=== PATIENT | female | born 1990 | race Caucasian/White ===

== ENCOUNTER 2019-01-26 11:28 | Emergency (ER) | payer MEDICAID ==
[~2019-01-26] VITALS: Ht 172.7 cm; Wt 53.6 kg
[2019-01-26 11:32] VITALS: Ht 172.7 cm; Wt 53.6 kg
[2019-01-26 12:03] LABS: BASOPHILS 0.3 % (0-2); EOSINOPHILS 1.8 % (0-7); HEMATOCRIT 41.1 % (36.0-48.0); IMMATURE GRANULOCYTES 0.2 % (0-5); LYMPHOCYTES 19.2 % (15-50); MCH 30.2 pg (26.0-34.0); MCHC 34.1 g/dL (31.0-37.0); MCV 88.6 fL (80.0-100.0); MEAN PLATELET VOLUME 10.2 fL (7.4-10.4); MONOCYTES 6.3 % (2-11); NEUTROPHILS 72.2 % (40-80); PLATELET COUNT 238 10x3/uL (130-400); RBC 4.64 10x6/uL (4.00-5.40); RDW 12.9 % (11.5-14.5); WBC 9.1 10x3/uL (4.8-10.8)
[2019-01-26 12:05] LABS: ALBUMIN 4.9 g/dL (3.4-5.0); ALKALINE PHOSPHATASE 55 U/L (46-116); ALT (SGPT) 11 U/L (10-68); BILIRUBIN - TOTAL 0.54 mg/dL (0.2-1.3); CALC OSMOLALITY 276 mosm/kg (275-300); CALCIUM 10.3 mg/dL (8.5-10.1); CARBON DIOXIDE 25.8 mmol/L (21.0-32.0); CHLORIDE - SERUM 103 mmol/L (98-107); CREATININE - SERUM 0.9 mg/dL (0.6-1.3); GLUCOSE 80 mg/dL (74-106); POTASSIUM - SERUM 3.7 mmol/L (3.5-5.1); PROTEIN - SERUM 8.6 g/dL (6.4-8.2); SODIUM 138 mmol/L (136-145); UREA NITROGEN 19 mg/dL (7-18); eGFR NON AFRICAN AMERICAN 79 mL/min (90-120)
[2019-01-26 12:15] LABS: APPEARANCE HAZY (CLEAR); BACTERIA MODERATE /hpf (NONE SEEN); BILIRUBIN NEGATIVE (NEGATIVE); COLOR YELLOW (YELLOW); EPITHELIAL CELLS 0-5 /hpf (0-5); GLUCOSE NEGATIVE (NEGATIVE); KETONE NEGATIVE (NEGATIVE); MUCUS <1+ /lpf (NONE SEEN); NITRITE NEGATIVE (NEGATIVE); PROTEIN NEGATIVE (NEGATIVE); RED CELLS - URINE 0-5 /hpf (0-5); UROBILINOGEN NORMAL (NORMAL); WHITE CELLS - URINE RARE /hpf (0-5)
[2019-01-26 12:28] LABS: HCG - QUANTITATIVE (MATERNAL) 3287 mIU/mL
[2019-01-26 15:36] VITALS: BP 107/65
== END 2019-01-26 14:51 | disposition home or self-care (01) ==
LOC: D.ER 11:28
PROVIDERS: Family Medicine
DX: O26.851 Spotting complicating pregnancy, first trimester (principal); Z3A.01 Less than 8 weeks gestation of pregnancy

== ENCOUNTER 2019-01-27 16:30 | Emergency (ER) | payer MEDICAID ==
[~2019-01-27] VITALS: Ht 172.7 cm; Wt 53.6 kg
[2019-01-27 16:36] VITALS: Ht 172.7 cm; Wt 53.6 kg
[2019-01-27 17:14] LABS: BASOPHILS 0.2 % (0-2); EOSINOPHILS 1.1 % (0-7); HEMATOCRIT 37.9 % (36.0-48.0); HEMOGLOBIN 12.9 g/dL (12-16); IMMATURE GRANULOCYTES 0.2 % (0-5); LYMPHOCYTES 15.5 % (15-50); MCH 29.9 pg (26.0-34.0); MCV 87.9 fL (80.0-100.0); MONOCYTES 6.6 % (2-11); NEUTROPHILS 76.4 % (40-80); PLATELET COUNT 221 10x3/uL (130-400); RBC 4.31 10x6/uL (4.00-5.40); RDW 12.8 % (11.5-14.5)
[2019-01-27 17:19] LABS: WBC 11.5 10x3/uL (4.8-10.8)
[2019-01-27 18:40] VITALS: BP 100/61
== END 2019-01-27 18:40 | disposition home or self-care (01) ==
LOC: D.ER 16:30
PROVIDERS: Emergency Medicine
DX: O20.9 Hemorrhage in early pregnancy, unspecified (principal); Z3A.01 Less than 8 weeks gestation of pregnancy; O03.9 Complete or unspecified spontaneous abortion without complication

== ENCOUNTER 2019-02-02 20:09 | Emergency (ER) | payer MEDICAID ==
[~2019-02-02] VITALS: Ht 172.7 cm; Wt 53.6 kg
[2019-02-02 20:22] VITALS: Ht 172.7 cm; Wt 53.6 kg
[2019-02-02 20:49] LABS: BASOPHILS 0.3 % (0-2); HEMATOCRIT 37.2 % (36.0-48.0); HEMOGLOBIN 12.7 g/dL (12-16); IMMATURE GRANULOCYTES 0.3 % (0-5); MCH 29.8 pg (26.0-34.0); MCHC 34.1 g/dL (31.0-37.0); MCV 87.3 fL (80.0-100.0); MEAN PLATELET VOLUME 9.7 fL (7.4-10.4); MONOCYTES 7.1 % (2-11); NEUTROPHILS 57.3 % (40-80); PLATELET COUNT 229 10x3/uL (130-400); RBC 4.26 10x6/uL (4.00-5.40); RDW 12.7 % (11.5-14.5); WBC 7.6 10x3/uL (4.8-10.8)
[2019-02-02 21:05] LABS: ALBUMIN 4.6 g/dL (3.4-5.0); ALKALINE PHOSPHATASE 48 U/L (46-116); ALT (SGPT) 15 U/L (10-68); BILIRUBIN - TOTAL 0.42 mg/dL (0.2-1.3); CALC OSMOLALITY 282 mosm/kg (275-300); CALCIUM 9.1 mg/dL (8.5-10.1); CARBON DIOXIDE 23.5 mmol/L (21.0-32.0); CHLORIDE - SERUM 106 mmol/L (98-107); CREATININE - SERUM 0.7 mg/dL (0.6-1.3); GLUCOSE 97 mg/dL (74-106); POTASSIUM - SERUM 3.4 mmol/L (3.5-5.1); PROTEIN - SERUM 7.7 g/dL (6.4-8.2); SODIUM 142 mmol/L (136-145); UREA NITROGEN 13 mg/dL (7-18); eGFR NON AFRICAN AMERICAN > 90 mL/min (90-120)
[2019-02-02 21:11] LABS: HCG - QUANTITATIVE (MATERNAL) 97 mIU/mL
[2019-02-02 22:12] LABS: APPEARANCE CLEAR (CLEAR); COLOR YELLOW (YELLOW)
[2019-02-02 22:13] LABS: BILIRUBIN NEGATIVE (NEGATIVE); GLUCOSE NEGATIVE (NEGATIVE); KETONE NEGATIVE (NEGATIVE); NITRITE NEGATIVE (NEGATIVE); PROTEIN NEGATIVE (NEGATIVE); RED CELLS - URINE OCC /hpf (0-5); UROBILINOGEN NORMAL (NORMAL); WHITE CELLS - URINE OCC /hpf (0-5)
[2019-02-02 22:14] LABS: BACTERIA MODERATE /hpf (NONE SEEN); EPITHELIAL CELLS 0-5 /hpf (0-5)
[2019-02-02 23:02] VITALS: BP 107/70
== END 2019-02-02 23:05 | disposition home or self-care (01) ==
LOC: D.ER 20:09
PROVIDERS: Family Medicine
DX: O20.9 Hemorrhage in early pregnancy, unspecified (principal); Z3A.01 Less than 8 weeks gestation of pregnancy; R10.2 Pelvic and perineal pain

== ENCOUNTER 2019-08-10 00:24 | Outpatient (CLI) | payer OTHER ==
[2019-02-02 20:22] VITALS: BMI 17.9
[2019-08-10 01:21] LABS: APPEARANCE CLEAR (CLEAR); BILIRUBIN NEGATIVE (NEGATIVE); COLOR YELLOW (YELLOW); GLUCOSE 50 mg/dL (NEGATIVE); KETONE NEGATIVE (NEGATIVE); NITRITE NEGATIVE (NEGATIVE); PROTEIN NEGATIVE (NEGATIVE); SPECIFIC GRAVITY 1.015 (1.005-1.020); UROBILINOGEN NORMAL (NORMAL)
[2019-08-10 01:23] LABS: BACTERIA FEW /hpf (NEGATIVE); EPITHELIAL CELLS 0-5 /hpf (0-5); WHITE CELLS - URINE 0-5 /hpf (NEGATIVE)
[2019-08-10 02:12] LABS: BASOPHILS 0.1 % (0-2); EOSINOPHILS 0.7 % (0-7); HEMATOCRIT 30.5 % (36.0-48.0); HEMOGLOBIN 10.4 g/dL (12-16); IMMATURE GRANULOCYTES 0.5 % (0-5); LYMPHOCYTES 15.8 % (15-50); MCH 30.9 pg (26.0-34.0); MCHC 34.1 g/dL (31.0-37.0); MCV 90.5 fL (80.0-100.0); MEAN PLATELET VOLUME 9.4 fL (7.4-10.4); MONOCYTES 7.8 % (2-11); NEUTROPHILS 75.1 % (40-80); PLATELET COUNT 217 10x3/uL (130-400); RBC 3.37 10x6/uL (4.00-5.40); RDW 13.2 % (11.5-14.5); WBC 9.9 10x3/uL (4.8-10.8)
== END 2019-08-10 02:40 | disposition home or self-care (01) ==
LOC: D.LDO 00:24
PROVIDERS: ATTEND Student in an Organized Health Care Education/Training Program
DX: O26.892 Other specified pregnancy related conditions, second trimester (principal); Z3A.23 23 weeks gestation of pregnancy; R10.9 Unspecified abdominal pain

== ENCOUNTER 2019-08-11 17:47 | Outpatient (CLI) | payer OTHER ==
[2019-02-02 20:22] VITALS: BMI 17.9
[2019-08-11 21:58] LABS: BACTERIA MANY /hpf (NEGATIVE); BILIRUBIN NEGATIVE (NEGATIVE); EPITHELIAL CELLS 0-5 /hpf (0-5); GLUCOSE NEGATIVE (NEGATIVE); KETONE LARGE mg/dL (NEGATIVE); NITRITE NEGATIVE (NEGATIVE); RED CELLS - URINE 0-5 /hpf (0-5); SPECIFIC GRAVITY 1.025 (1.005-1.020); UROBILINOGEN NORMAL (NORMAL)
== END 2019-08-12 00:50 | disposition home or self-care (01) ==
LOC: D.LDO 17:47 → D.LD 23:06 → D.LDO 08-12 00:50
PROVIDERS: ATTEND Obstetrics & Gynecology
DX: O26.892 Other specified pregnancy related conditions, second trimester (principal); Z3A.23 23 weeks gestation of pregnancy; R10.9 Unspecified abdominal pain; N20.0 Calculus of kidney

== ENCOUNTER → 2019-08-18 17:52 | Outpatient (CLI) | payer OTHER ==
[2019-02-02 20:22] VITALS: BMI 17.9
[2019-08-18 18:46] LABS: BASOPHILS 0.1 % (0-2); EOSINOPHILS 1.2 % (0-7); HEMATOCRIT 30.7 % (36.0-48.0); HEMOGLOBIN 10.3 g/dL (12-16); IMMATURE GRANULOCYTES 0.4 % (0-5); LYMPHOCYTES 20.5 % (15-50); MCH 30.6 pg (26.0-34.0); MCHC 33.6 g/dL (31.0-37.0); MCV 91.1 fL (80.0-100.0); MEAN PLATELET VOLUME 9.5 fL (7.4-10.4); MONOCYTES 8.7 % (2-11); NEUTROPHILS 69.1 % (40-80); PLATELET COUNT 209 10x3/uL (130-400); RBC 3.37 10x6/uL (4.00-5.40); RDW 13.3 % (11.5-14.5); WBC 7.8 10x3/uL (4.8-10.8)
[2019-08-18 18:49] LABS: BILIRUBIN NEGATIVE (NEGATIVE); GLUCOSE NEGATIVE (NEGATIVE); KETONE NEGATIVE (NEGATIVE); NITRITE NEGATIVE (NEGATIVE); UROBILINOGEN NORMAL (NORMAL)
[2019-08-18 18:50] LABS: RED CELLS - URINE >50 /hpf (0-5); WHITE CELLS - URINE 0-5 /hpf (NEGATIVE)
[2019-08-18 18:51] LABS: BACTERIA FEW /hpf (NEGATIVE)
== END | disposition home or self-care (01) ==
LOC: D.LDO 17:52
PROVIDERS: ATTEND Obstetrics & Gynecology
DX: O36.8120 Decreased fetal movements, second trimester, not applicable or unspecified (principal); Z3A.24 24 weeks gestation of pregnancy; R31.9 Hematuria, unspecified

== ENCOUNTER 2019-10-07 14:04 | Outpatient (CLI) | payer OTHER ==
[2019-02-02 20:22] VITALS: BMI 17.9
[2019-10-07 14:24] LABS: BACTERIA MODERATE /hpf (NEGATIVE); BILIRUBIN NEGATIVE (NEGATIVE); EPITHELIAL CELLS OCC /hpf (0-5); GLUCOSE NEGATIVE (NEGATIVE); KETONE NEGATIVE (NEGATIVE); NITRITE NEGATIVE (NEGATIVE); RED CELLS - URINE >50 /hpf (0-5); UROBILINOGEN NORMAL (NORMAL); WHITE CELLS - URINE 0-5 /hpf (NEGATIVE)
[2019-10-07] MEDS ORDERED: PRENAVITE1 TAB PO (14:37)
[2019-10-07] MEDS ORDERED: TYLENOL W/CODEI1 TAB PO (14:38)
[2019-10-07] MEDS ORDERED: BENADRYL25 MG PO (14:38)
== END 2019-10-07 16:35 | disposition home or self-care (01) ==
LOC: D.LDO 14:04
PROVIDERS: ATTEND Student in an Organized Health Care Education/Training Program
DX: O26.899 Other specified pregnancy related conditions, unspecified trimester (principal); Z3A.00 Weeks of gestation of pregnancy not specified; M54.9 Dorsalgia, unspecified; R10.9 Unspecified abdominal pain

== ENCOUNTER 2019-10-12 16:01 | Outpatient (CLI) | payer OTHER ==
[2019-02-02 20:22] VITALS: BMI 17.9
[~2019-10-12 16:01] MED LIST: BENADRYL25 MG PO; PRENAVITE1 TAB PO; TYLENOL W/CODEI1 TAB PO
[2019-10-12] MEDS ORDERED: TYLENOL #4 W/CO1 TAB PO (16:05)
[2019-10-12 17:08] LABS: BASOPHILS 0.1 % (0-2); EOSINOPHILS 0.5 % (0-7); HEMATOCRIT 32.1 % (36.0-48.0); HEMOGLOBIN 10.3 g/dL (12-16); IMMATURE GRANULOCYTES 0.2 % (0-5); LYMPHOCYTES 15.5 % (15-50); MCH 29.9 pg (26.0-34.0); MCHC 32.1 g/dL (31.0-37.0); MCV 93.3 fL (80.0-100.0); MEAN PLATELET VOLUME 9.7 fL (7.4-10.4); MONOCYTES 7.7 % (2-11); PLATELET COUNT 204 10x3/uL (130-400); RBC 3.44 10x6/uL (4.00-5.40); RDW 13.3 % (11.5-14.5); WBC 9.7 10x3/uL (4.8-10.8)
[2019-10-12 17:15] LABS: BILIRUBIN NEGATIVE (NEGATIVE); CALC OSMOLALITY 270 mosm/kg (275-300); CALCIUM 8.8 mg/dL (8.5-10.1); CHLORIDE - SERUM 104 mmol/L (98-107); CREATININE - SERUM 0.6 mg/dL (0.6-1.3); GLUCOSE 78 mg/dL (74-106); GLUCOSE NEGATIVE (NEGATIVE); KETONE NEGATIVE (NEGATIVE); NITRITE POSITIVE (NEGATIVE); POTASSIUM - SERUM 3.7 mmol/L (3.5-5.1); SODIUM 137 mmol/L (136-145); UREA NITROGEN 6 mg/dL (7-18); UROBILINOGEN NORMAL (NORMAL); eGFR NON AFRICAN AMERICAN > 90 mL/min (90-120)
[2019-10-12 17:17] LABS: RED CELLS - URINE >50 /hpf (0-5)
[2019-10-12 17:18] LABS: BACTERIA MODERATE /hpf (NEGATIVE); EPITHELIAL CELLS NSEEN /hpf (0-5)
[2019-10-12 17:21] LABS: ALBUMIN 2.9 g/dL (3.4-5.0); ALKALINE PHOSPHATASE 65 U/L (30-120); BILIRUBIN - TOTAL 0.37 mg/dL (0.2-1.3); PROTEIN - SERUM 6.8 g/dL (6.4-8.2)
[2019-10-12 17:23] LABS: ALT (SGPT) 6 U/L (10-68)
[2019-10-13 07:10] VITALS: BP 98/61
--- NOTE | 2019-10-13 07:50 | NUR ---
DR URIOSTEGUI CALLS AND STATES TO DC MONITORING. MONITORS REMOVED AND PLAN OF CARE EXPLAINED TO PT. PT STATES UNDERSTANDING.
[2019-10-13] MEDS ORDERED: PERCOCET 5-3251 TAB PO (09:23)
== END 2019-10-13 10:35 | disposition home or self-care (01) ==
LOC: D.LDO 16:01 → D.LD 20:11 → D.LDO 10-13 10:35
PROVIDERS: ATTEND Obstetrics & Gynecology
DX: O36.8190 Decreased fetal movements, unspecified trimester, not applicable or unspecified (principal); Z3A.00 Weeks of gestation of pregnancy not specified; M54.9 Dorsalgia, unspecified; R10.32 Left lower quadrant pain

== ENCOUNTER 2019-10-20 17:58 | Outpatient (CLI) | payer OTHER ==
[~2019-10-20 17:58] MED LIST changes: +PERCOCET 5-3251 TAB PO; +TYLENOL #4 W/CO1 TAB PO
[2019-10-20 18:31] LABS: BASOPHILS 0.1 % (0-2); EOSINOPHILS 1.5 % (0-7); HEMATOCRIT 31.3 % (36.0-48.0); HEMOGLOBIN 10.2 g/dL (12-16); IMMATURE GRANULOCYTES 0.5 % (0-5); LYMPHOCYTES 16.4 % (15-50); MCHC 32.6 g/dL (31.0-37.0); MCV 92.1 fL (80.0-100.0); MEAN PLATELET VOLUME 9.7 fL (7.4-10.4); MONOCYTES 6.9 % (2-11); NEUTROPHILS 74.6 % (40-80); PLATELET COUNT 225 10x3/uL (130-400); WBC 9.4 10x3/uL (4.8-10.8)
[2019-10-20 18:33] LABS: BILIRUBIN NEGATIVE (NEGATIVE); GLUCOSE NEGATIVE (NEGATIVE); KETONE SMALL mg/dL (NEGATIVE); NITRITE POSITIVE (NEGATIVE); UROBILINOGEN NORMAL (NORMAL)
[2019-10-20 18:37] LABS: BACTERIA FEW /hpf (NEGATIVE); EPITHELIAL CELLS 0-5 /hpf (0-5); RED CELLS - URINE >50 /hpf (0-5); WHITE CELLS - URINE 0-5 /hpf (NEGATIVE)
[2019-10-20 18:38] LABS: CALCIUM OXALATE CRYSTALS 0-5 /hpf (NONE SEEN)
[2019-10-20 18:40] LABS: CALC OSMOLALITY 276 mosm/kg (275-300); CALCIUM 9.2 mg/dL (8.5-10.1); CARBON DIOXIDE 22.8 mmol/L (21.0-32.0); CHLORIDE - SERUM 104 mmol/L (98-107); CREATININE - SERUM 0.6 mg/dL (0.6-1.3); GLUCOSE 76 mg/dL (74-106); POTASSIUM - SERUM 3.6 mmol/L (3.5-5.1); SODIUM 139 mmol/L (136-145); UREA NITROGEN 12 mg/dL (7-18); eGFR NON AFRICAN AMERICAN > 90 mL/min (90-120)
[2019-10-20 18:49] LABS: ALBUMIN 2.8 g/dL (3.4-5.0); ALKALINE PHOSPHATASE 70 U/L (30-120); ALT (SGPT) 18 U/L (10-68); BILIRUBIN - TOTAL 0.36 mg/dL (0.2-1.3); PROTEIN - SERUM 6.6 g/dL (6.4-8.2)
[2019-10-20 22:31] LABS: BILIRUBIN NEGATIVE (NEGATIVE); GLUCOSE NEGATIVE (NEGATIVE); KETONE LARGE mg/dL (NEGATIVE); NITRITE NEGATIVE (NEGATIVE); SPECIFIC GRAVITY 1.015 (1.005-1.020); UROBILINOGEN NORMAL (NORMAL)
[2019-10-20 22:32] LABS: BACTERIA FEW /hpf (NEGATIVE); EPITHELIAL CELLS 0-5 /hpf (0-5); RED CELLS - URINE >50 /hpf (0-5); WHITE CELLS - URINE OCC /hpf (NEGATIVE)
[2019-10-21 08:14] LABS: BILIRUBIN NEGATIVE (NEGATIVE); GLUCOSE NEGATIVE (NEGATIVE); KETONE NEGATIVE (NEGATIVE); NITRITE NEGATIVE (NEGATIVE); UROBILINOGEN NORMAL (NORMAL)
[2019-10-21 08:16] LABS: BACTERIA FEW /hpf (NEGATIVE); EPITHELIAL CELLS 0-5 /hpf (0-5); RED CELLS - URINE >50 /hpf (0-5); WHITE CELLS - URINE 0-5 /hpf (NEGATIVE)
[2019-10-21 09:06] VITALS: BMI 17.9
== END 2019-10-21 09:41 | disposition home or self-care (01) ==
LOC: D.LDO 17:58 → D.LD 23:07 → D.LDO 10-21 09:41
PROVIDERS: ATTEND Obstetrics & Gynecology
DX: O26.893 Other specified pregnancy related conditions, third trimester (principal); Z3A.33 33 weeks gestation of pregnancy; N85.8 Other specified noninflammatory disorders of uterus; R10.9 Unspecified abdominal pain; M54.9 Dorsalgia, unspecified

== ENCOUNTER 2019-11-12 04:15 | Outpatient (CLI) | payer OTHER ==
[2019-11-12 04:40] LABS: BILIRUBIN NEGATIVE (NEGATIVE); GLUCOSE NEGATIVE (NEGATIVE); KETONE MODERATE mg/dL (NEGATIVE); NITRITE NEGATIVE (NEGATIVE); SPECIFIC GRAVITY 1.015 (1.005-1.020); UROBILINOGEN NORMAL (NORMAL)
[2019-11-12 04:42] LABS: BACTERIA MODERATE /hpf (NEGATIVE); EPITHELIAL CELLS 0-5 /hpf (0-5)
[2019-11-12 06:15] LABS: BASOPHILS 0.1 % (0-2); EOSINOPHILS 1.3 % (0-7); HEMATOCRIT 30.3 % (36.0-48.0); HEMOGLOBIN 9.9 g/dL (12-16); IMMATURE GRANULOCYTES 0.6 % (0-5); LYMPHOCYTES 18.2 % (15-50); MCH 29.8 pg (26.0-34.0); MCHC 32.7 g/dL (31.0-37.0); MCV 91.3 fL (80.0-100.0); MEAN PLATELET VOLUME 10.4 fL (7.4-10.4); MONOCYTES 6.5 % (2-11); NEUTROPHILS 73.3 % (40-80); PLATELET COUNT 196 10x3/uL (130-400); RBC 3.32 10x6/uL (4.00-5.40); RDW 13.5 % (11.5-14.5); WBC 9.8 10x3/uL (4.8-10.8)
== END 2019-11-12 07:00 | disposition home or self-care (01) ==
LOC: D.LDO 04:15
PROVIDERS: ATTEND Obstetrics & Gynecology
DX: O26.893 Other specified pregnancy related conditions, third trimester (principal); Z3A.36 36 weeks gestation of pregnancy; N85.8 Other specified noninflammatory disorders of uterus

== ENCOUNTER 2019-11-17 01:14 | Outpatient (CLI) | payer OTHER ==
[2019-11-17 01:53] LABS: BACTERIA NONE SEEN /hpf (NEGATIVE); BILIRUBIN NEGATIVE (NEGATIVE); EPITHELIAL CELLS 0-5 /hpf (0-5); GLUCOSE NEGATIVE (NEGATIVE); KETONE MODERATE mg/dL (NEGATIVE); NITRITE NEGATIVE (NEGATIVE); RED CELLS - URINE >50 /hpf (0-5); SPECIFIC GRAVITY 1.015 (1.005-1.020); UROBILINOGEN NORMAL (NORMAL); WHITE CELLS - URINE 0-5 /hpf (NEGATIVE)
[2019-11-17] MEDS ORDERED: MACROBID100 MG PO (22:26)
== END 2019-11-17 02:12 | disposition home or self-care (01) ==
LOC: D.LDO 01:14
PROVIDERS: ATTEND Student in an Organized Health Care Education/Training Program
DX: O26.899 Other specified pregnancy related conditions, unspecified trimester (principal); Z3A.00 Weeks of gestation of pregnancy not specified; N85.8 Other specified noninflammatory disorders of uterus

== ENCOUNTER 2019-11-17 21:26 | Emergency (ER) | payer OTHER ==
[~2019-11-17] VITALS: Ht 172.7 cm; Wt 57.7 kg
[2019-11-17 21:38] VITALS: Ht 172.7 cm; Wt 57.7 kg
[2019-11-17 21:50] LABS: BASOPHILS 0.2 % (0-2); EOSINOPHILS 1.1 % (0-7); HEMATOCRIT 33.4 % (36.0-48.0); IMMATURE GRANULOCYTES 0.5 % (0-5); LYMPHOCYTES 17.7 % (15-50); MCH 30.2 pg (26.0-34.0); MCHC 32.9 g/dL (31.0-37.0); MCV 91.8 fL (80.0-100.0); MEAN PLATELET VOLUME 9.8 fL (7.4-10.4); MONOCYTES 9.1 % (2-11); NEUTROPHILS 71.4 % (40-80); PLATELET COUNT 234 10x3/uL (130-400); RBC 3.64 10x6/uL (4.00-5.40); RDW 13.3 % (11.5-14.5); WBC 10.7 10x3/uL (4.8-10.8)
[2019-11-17 21:58] LABS: CALC OSMOLALITY 269 mosm/kg (275-300); CALCIUM 9.1 mg/dL (8.5-10.1); CARBON DIOXIDE 23.4 mmol/L (21.0-32.0); CHLORIDE - SERUM 105 mmol/L (98-107); CREATININE - SERUM 0.8 mg/dL (0.6-1.3); GLUCOSE 87 mg/dL (74-106); POTASSIUM - SERUM 3.6 mmol/L (3.5-5.1); SODIUM 136 mmol/L (136-145); UREA NITROGEN 11 mg/dL (7-18); eGFR NON AFRICAN AMERICAN 90 mL/min (90-120)
[2019-11-17 22:04] LABS: ALKALINE PHOSPHATASE 103 U/L (30-120); ALT (SGPT) 16 U/L (10-68); BILIRUBIN - TOTAL 0.34 mg/dL (0.2-1.3)
[2019-11-17 22:10] LABS: BILIRUBIN NEGATIVE (NEGATIVE); GLUCOSE NEGATIVE (NEGATIVE); KETONE NEGATIVE (NEGATIVE); NITRITE NEGATIVE (NEGATIVE); RED CELLS - URINE >50 /hpf (0-5); UROBILINOGEN NORMAL (NORMAL)
[2019-11-17 22:11] LABS: BACTERIA MODERATE /hpf (NEGATIVE)
[2019-11-17] MEDS ORDERED: MACROBID100 MG PO (22:26)
[2019-11-17 23:18] VITALS: BP 114/80
== END 2019-11-17 23:18 | disposition home or self-care (01) ==
LOC: D.ER 21:26
PROVIDERS: Family Medicine
DX: O26.893 Other specified pregnancy related conditions, third trimester (principal); Z3A.37 37 weeks gestation of pregnancy; Z87.440 Personal history of urinary (tract) infections; Z96.0 Presence of urogenital implants

== ENCOUNTER 2019-11-20 20:04 | Inpatient (IN) | payer OTHER ==
[~2019-11-20] VITALS: Ht 172.7 cm; Wt 57.6 kg
[~2019-11-20 20:04] MED LIST changes: +MACROBID100 MG PO
[2019-11-20 20:12] VITALS: BP 117/89; Ht 172.7 cm; Wt 57.6 kg
[2019-11-20 22:40] LABS: HEMATOCRIT 32.6 % (36.0-48.0); HEMOGLOBIN 10.5 g/dL (12-16); MCH 29.8 pg (26.0-34.0); MCHC 32.2 g/dL (31.0-37.0); MCV 92.6 fL (80.0-100.0); MEAN PLATELET VOLUME 10.9 fL (7.4-10.4); RBC 3.52 10x6/uL (4.00-5.40); RDW 13.4 % (11.5-14.5); WBC 10.1 10x3/uL (4.8-10.8)
[2019-11-20 22:54] LABS: BILIRUBIN NEGATIVE (NEGATIVE); GLUCOSE NEGATIVE (NEGATIVE); KETONE NEGATIVE (NEGATIVE); NITRITE NEGATIVE (NEGATIVE); UROBILINOGEN NORMAL (NORMAL)
[2019-11-20 22:55] LABS: RED CELLS - URINE >50 /hpf (0-5)
[2019-11-20 22:56] LABS: EPITHELIAL CELLS 0-5 /hpf (0-5)
[2019-11-20 22:57] LABS: BACTERIA MODERATE /hpf (NEGATIVE)
--- NOTE | 2019-11-21 17:44 | MORECARE ---
CASE MANAGEMENT DISCHARGE SUMMARY PATIENT: TUNDE SANDERS UNIT: [id number] ADM DATE: 11/20/19 AGE: 29 : [birth year] SEX: F ROOM/BED: D.[facility]6 AUTHOR: LUCY FORRESTER PHYSICIAN: REFERRING PHYSICIAN: ERENDIRA URIOSTEGUI MD DATE OF SERVICE: 11/21/19 Discharge Plan Patient Name: TUNDE SANDERS Facility: [facility]:[place] : 1990 Planned Disposition: Home Anticipated Discharge Date: Discharge Date: Expected LOS: 0 Initial Reviewer: [email or web address] Initial Review Date: 11/20/2019 Generated: 11/21/19 6:43 pm Patient Name: TUNDE SANDERS Page [id number] at 1744 All edits/amendments must be made on the electronic document DICTATION DATE: 11/21/191742 NATURAL DEVELOPER: WILLIAN 11/21/191742 RPT#: [id number] DC DATE: STATUS: ADM IN [facility] [address] [place] [address] END OF REPORT
--- NOTE | 2019-11-21 19:27 | NUR ---
PT CAM MAKER LIGHT. STATES HAS URGE TO VOID. THIS NURSE TO ROOM. PT SITS UP ON SIDE OF BED. EPIDURAL CATH DC'D WITH BLACK TIP INTACT. PT AMB TO BR TO VOID. VOIDS 300 ML OF BLOOD-TINGED URINE. PERICARE DONE PER PT. PANTIES AND PAD ON. PT AMB BACK TO BED. AICHA ACTIVITY WELL. SR UP X 2. CALL LIGHT IN REACH. INFANT PLACED IN MOM'S ARMS PER PT REQUEST.
[2019-11-21 20:08] VITALS: BP 120/71
--- NOTE | 2019-11-21 20:19 | NUR ---
RN TO PT BEDSIDE FOR ROUNDING, PT STATES PAIN IS 1-2 TO ABDOMEN,VSS, FUNDUS IS FIRM, MIDLINE, 2 BELOW, SCANT RUBRA LOCHIA NOTED, BED IN LOWEST POSITION, CALL LIGHT IN REACH, SIDE RAILS UPX2.
--- NOTE | 2019-11-21 20:22 | NUR ---
PT TRANSFERRED TO 2160
--- NOTE | 2019-11-22 00:39 | NUR ---
ROUNDING AT THIS TIME. PT SLEEPING, NO NEEDS AT THIS TIME.
--- NOTE | 2019-11-22 02:14 | NUR ---
RN TO PT BEDSIDE FOR ROUNDING. PT IS SLEEPING AT THIS TIME, NO FURTHER NEEDS.
[2019-11-22 04:30] VITALS: BP 109/72
--- NOTE | 2019-11-22 04:30 | NUR ---
RN TO PT BEDSIDE FOR ROUNDING, INFANT IN CRIB AT BEDSIDE, VSS. PAIN 3/10 TO ABDOMEN, FUNDUS IS FIRM, MIDLINE, 2 BELOW, SCANT RUBRA LOCHIA. BED IN LOWEST POSITION, SIDE RIALS UPX2, CALL LIGHT IN REACH.
--- NOTE | 2019-11-22 07:00 | NUR ---
BEDSIDE REPORT RECEIVED. PT REQUESTS AND RECEIVES LISA FRANCO AND PILY RODRIGUEZ.
[2019-11-22 07:14] LABS: RAPID PLASMA REAGIN Non Reactive (Non Reactive)
[2019-11-22 07:15] VITALS: BP 112/76
--- NOTE | 2019-11-22 07:15 | NUR ---
PT SITTING UP IN BED. HOLDS WITH MUCH WARMTH SHOWN. VSS. HRRR WITHOUT AUDIBLE MURMUR. BBS CLEAR. BS X 4. ABDOMEN SOFT/NON-DISTENDED. FUNDUS FIRM AT U/2. RUBRA LOCHIA SMALL AMT. PT DENIES HEAVY BLEEDING OR PASSING CLOTS. NEG HOMANS' SIGN. PPP. NO EDEMA NOTED TO BLE. SL TO RIGHT WRIST. SITE CLEAR. PT STATES CRAMPING OF "2" ON 0-10 PAIN SCALE. DENIES NEED FOR PAIN MED. SR UP X 2. CALL LIGHT IN REACH.
[2019-11-22 07:24] LABS: BASOPHILS 0.2 % (0-2); HEMATOCRIT 28.9 % (36.0-48.0); HEMOGLOBIN 9.5 g/dL (12-16); IMMATURE GRANULOCYTES 0.3 % (0-5); LYMPHOCYTES 17.3 % (15-50); MCHC 32.9 g/dL (31.0-37.0); MCV 91.2 fL (80.0-100.0); MONOCYTES 8.1 % (2-11); NEUTROPHILS 73.1 % (40-80); RBC 3.17 10x6/uL (4.00-5.40); RDW 13.2 % (11.5-14.5); WBC 11.2 10x3/uL (4.8-10.8)
[2019-11-22 07:40] LABS: PLATELET COUNT 170 10x3/uL (130-400)
--- NOTE | 2019-11-22 09:29 | NUR ---
PT LYING IN SEMI-BURRIS'S POSITION IN BED. INFANT. DENIES C/O OR NEEDS.
--- NOTE | 2019-11-22 10:17 | NUR ---
TYLENOL 1000 MG GIVEN PO ORDERED. PT LYING TO RIGHT SIDE. STATES RESTING WHILE INFANT IN NSY FOR PHYSICIAN EXAM.
--- NOTE | 2019-11-22 11:30 | NUR ---
PT UP TO SHOWER. LINENS PROVIDED.
--- NOTE | 2019-11-22 12:00 | NUR ---
PT SITTING UP ON SIDE OF BED. STATES AICHA SHOWER WELL. SL DC'D WITH CATHELON INTACT. PRESSURE BANDAGE TO SITE. PT AICHA WELL.
--- NOTE | 2019-11-22 13:00 | NUR ---
PT SITTING UP IN BED. STATES WILL TAKE TDAP VACCINE AT DISCHARGE. PT ALSO STATES DESIRE FOR BTL. WILL OBTAIN BTL PAPERS FOR PT TO SIGN.
--- NOTE | 2019-11-22 13:30 | NUR ---
DR URIOSTEGUI VISITS WITH PT.
--- NOTE | 2019-11-22 14:30 | NUR ---
DISCHARGE INSTRUCTIONS GIVEN TO PT. PT VERBALIZES UNDERSTANDING OF ALL INSTRUCTIONS. COPIES GIVEN TO PT. PT GIVEN TDAP 0.5 ML IM TO LEFT DELTOID. PT AICHA WELL. PT AWAITS 'S DISCHARGE.
--- NOTE | 2019-11-22 16:00 | NUR ---
PT AMBULATORY IN ROOM. PREPARING FOR DISCHARGE. DENIES C/O OR NEEDS.
--- NOTE | 2019-11-22 17:54 | NUR ---
PT GIVEN TYLENOL 1000 MG AND TORADOL 10 MG PO FOR C/O PAIN OF "1" ON 0-10 PAIN SCALE AND PT ABOUT TO DC HOME. PT INSTRUCTED ON MEDS. VERBALIZES UNDERSTANDING.
--- NOTE | 2019-11-22 18:40 | NUR ---
PT READY FOR DISCHARGE. DISCHARGED WITH IN STABLE CONDITION VIA WHEELCHAIR TO PRIVATE VEHICLE.
--- NOTE | 2019-11-23 09:04 | MORECARE ---
CASE MANAGEMENT DISCHARGE SUMMARY PATIENT: TUNDE SANDERS UNIT: [id number] ADM DATE: 11/20/19 AGE: 29 : [birth year] SEX: F ROOM/BED: D.1221 AUTHOR: LUCY FORRESTER PHYSICIAN: REFERRING PHYSICIAN: ERENDIRA URIOSTEGUI MD DATE OF SERVICE: 11/23/19 Discharge Plan Patient Name: TUNDE SANDERS Facility: [facility]:[place] : 1990 Planned Disposition: Home Anticipated Discharge Date: Discharge Date: 11/22/2019 Expected LOS: 0 Initial Reviewer: [email or web address] Initial Review Date: 11/20/2019 Generated: 11/23/19 10:04 am Last DP export: 11/21/19 4:44 pm Patient Name: TUNDE SANDERS Page [id number] at 0904 All edits/amendments must be made on the electronic document DICTATION DATE: 11/23/19903 MANUFACTURING SUPPORT ENGINEER: WILLIAN 11/23/19903 RPT#: [id number] DC DATE:11/22/19 STATUS: DIS IN [facility] [address] [place] [address] END OF REPORT
--- NOTE | 2019-11-23 16:16 | MORECARE ---
CASE MANAGEMENT DISCHARGE SUMMARY PATIENT: TUNDE SANDERS UNIT: [id number] ADM DATE: 11/20/19 AGE: 29 : [birth year] SEX: F ROOM/BED: D.1221 AUTHOR: LUCY FORRESTER PHYSICIAN: REFERRING PHYSICIAN: ERENDIRA URIOSTEGUI MD DATE OF SERVICE: 11/23/19 Discharge Plan Patient Name: TNUDE SANDERS Facility: [facility]:[place] : 1990 Planned Disposition: Home Anticipated Discharge Date: 11/22/19 Discharge Date: 11/22/2019 Expected LOS: 2 Initial Reviewer: [email or web address] Initial Review Date: 11/20/2019 Generated: 11/23/19 5:15 pm Last DP export: 11/23/19 8:04 am Patient Name: TUNDE SANDERS Page [phone] at 1616 All edits/amendments must be made on the electronic document DICTATION DATE: 11/23/19 1615 MEDICAL SUPPORT SPECIALIST: WILLIAN 11/23/19 1615 RPT#: [id number] DC DATE:11/22/19 STATUS: DIS IN [facility] [address] [place] [address] END OF REPORT
== END 2019-11-22 18:40 | disposition home or self-care (01) | DRG 807 ==
LOC: D.WS 20:04 → D.LD 20:04 → D.WS 11-21 20:23
PROVIDERS: ADMIT Obstetrics & Gynecology; ATTEND Obstetrics & Gynecology
PROC: 10E0XZZ Delivery of Products of Conception, External Approach (ICD-10-PCS; principal; 2019-11-21)
PROC: 3E033VJ Introduction of Other Hormone into Peripheral Vein, Percutaneous Approach (ICD-10-PCS; 2019-11-21)
DX: O99.89 Other specified diseases and conditions complicating pregnancy, childbirth and the puerperium (principal); Z37.0 Single live birth; N20.0 Calculus of kidney; Z3A.38 38 weeks gestation of pregnancy

== ENCOUNTER → 2019-12-05 09:09 | Outpatient (CLI) | payer OTHER ==
[2019-11-20 20:12] VITALS: BMI 19.3
== END | disposition home or self-care (01) ==
LOC: D.CT 09:09
PROVIDERS: ATTEND Urology
DX: N20.0 Calculus of kidney (principal)

== ENCOUNTER 2020-01-14 08:46 | Day surgery (SDC) | payer MEDICAID ==
[2020-01-11 11:11] LABS: BASOPHILS 0.4 % (0-2); EOSINOPHILS 3.7 % (0-7); HEMATOCRIT 42.2 % (36.0-48.0); HEMOGLOBIN 13.2 g/dL (12-16); IMMATURE GRANULOCYTES 0.2 % (0-5); LYMPHOCYTES 23.6 % (15-50); MCHC 31.3 g/dL (31.0-37.0); MCV 92.7 fL (80.0-100.0); MEAN PLATELET VOLUME 9.6 fL (7.4-10.4); MONOCYTES 8.3 % (2-11); NEUTROPHILS 63.8 % (40-80); PLATELET COUNT 300 10x3/uL (130-400); RBC 4.55 10x6/uL (4.00-5.40); RDW 12.7 % (11.5-14.5)
[~2020-01-14] VITALS: Ht 172.7 cm; Wt 51.7 kg
[2020-01-14 09:17] VITALS: BP 102/78; Ht 172.7 cm; Wt 51.7 kg
[2020-01-14 09:26] LABS: HCG URINE NEGATIVE (NEGATIVE)
--- NOTE | 2020-01-14 15:48 | NUR ---
1255 IV DC'D. CATHETER TIP INTACT. NO BLEEDING AT SITE. BANDAID APPLIED.
--- NOTE | 2020-01-14 15:51 | NUR ---
1340 PT READY FOR DISCHARGE. REVIEWED DISCHARGE INSTRUCTIONS WITH PT WHO VOICES UNDERSTANDING OF INSTRUCTIONS.
--- NOTE | 2020-01-16 09:15 | OP ---
PATIENT NAME: TUNDE SANDERS MEDICAL RECORD: [id number] :[birth year] [facility] DATE: SURGEON: SAEID URIOSTEGUI MD DATE OF OPERATION: 01/14/2020 PREOPERATIVE DIAGNOSIS: Undesired fertility. POSTOPERATIVE DIAGNOSIS: Undesired fertility. PROCEDURE: Bilateral tubal occlusion using Falope rings. SURGEON: Saeid Uriostegui MD ANESTHESIOLOGIST: Richard Giang MD ANESTHESIA: General. FINDINGS: Uterus is slightly enlarged, otherwise unremarkable. Both tubes and ovaries are unremarkable bilaterally. SPECIMEN REMOVED: None applicable. ESTIMATED BLOOD LOSS: Minimal. FLUIDS: 600 cc of lactated Ringer's. URINE OUTPUT: Quantity sufficient void prior to this procedure. COMPLICATIONS: None. DRAINS: None. INDICATIONS: The patient is a 29-year-old multiparous female with undesired fertility. The patient has been counseled and understands there are alternatives to sterilization. The patient understands the possibility of failure with an increased chance of an ectopic , which can be life threatening if not treated. DESCRIPTION OF PROCEDURE: After informed consent was assured, the patient was taken to the operating room where anesthetic was obtained. The patient was now prepped and draped in the usual sterile fashion. An incision was made at the umbilicus to accommodate a 5-mm trocar, which was inserted without difficulty. Pneumoperitoneum was now developed and the patient in Trendelenburg position. Accessory ports are now placed 2 fingerbreadths above the symphysis in the midline. Through this 8-mm port, the Falope ring applicator was inserted, doubly loaded. The left tube was followed to its fimbriated end and then the segment along the ischemic portion of the tube was selected and the ring applied. The device misfires and both rings were applied to the left tube. The device was now reloaded and the right tube was identified, followed to its fimbriated end. Again, a portion of the isthmus was selected to be occluded. The Falope ring applicator was fired and again 2 rings are placed on the right tube. The sponge, lap, needle counts were correct times 2. The pneumoperitoneum was released. Prior to removal of the complete pneumoperitoneum, approximately 5 cc of Marcaine was placed over both tubal occlusion sites. Trocars were removed. The skin sites reapproximated and OPERATIVE REPORT [id number] TUNDE SANDERS sterile dressing applied. The patient went to the recovery area in stable condition. TRANSINT:[id number] Voice Confirmation ID: [id number] DOCUMENT ID: [id number] SAEID URIOSTEGUI MD at 0915 CC: [id number] DICTATION DATE: 01/14/20 1109 TRANSPORT COORDINATOR: 01/14/20 1820 [facility] 01/14/20 [place] [id number] [place] [id number]
== END 2020-01-14 13:40 | disposition home or self-care (01) ==
LOC: D.OPS 08:46 → D.PAN 10:30 → D.OPS 11:00 → D.PAN 11:00 → D.OPS 13:40
PROVIDERS: ATTEND Obstetrics & Gynecology
DX: Z30.2 Encounter for sterilization (principal); N23 Unspecified renal colic